=== PATIENT | male | born 1950 | race Caucasian/White ===

== ENCOUNTER 2020-12-29 19:44 | Emergency (ER) | payer MEDICARE, BC ==
[~2020-12-29] VITALS: Ht 188 cm; Wt 96.4 kg
[2020-12-29 21:00] LABS: BASOPHILS % (AUTO) 0.7 % (0-1); EOSINOPHILS # (AUTO) 0.2 X10'3 (0-0.9); HEMATOCRIT 36.4 % (42.0-52.0); HEMOGLOBIN 12.6 g/dl (14.0-17.9); LYMPHOCYTES # (AUTO) 0.8 X10'3 (1.1-4.8); LYMPHOCYTES % (AUTO) 14.3 % (21-51); MEAN CORPUSCULAR HEMOGLOBIN 33.8 PG (27.0-31.0); MEAN CORPUSCULAR HGB CONC 34.7 g/dL (33.0-36.5); MEAN CORPUSCULAR VOLUME 97.4 FL (78-98); MEAN PLATELET VOLUME 7.5 FL (7.4-10.4); MONOCYTES # (AUTO) 0.7 X10'3 (0-0.9); MONOCYTES % (AUTO) 11.2 % (2-12); NEUTROPHILS # (AUTO) 4.1 X10'3 (1.8-7.7); NEUTROPHILS % (AUTO) 69.8 % (42-75); PLATELET COUNT 140 X10'3 (140-440); RED BLOOD COUNT 3.74 X10'6 (4.70-6.10); RED CELL DISTRIBUTION WIDTH 13.3 % (11.5-14.5); WHITE BLOOD COUNT 5.9 X10'3 (4.5-11.0)
[2020-12-29] MEDS ORDERED: CARV-50 PO (21:03)
[2020-12-29] MEDS ORDERED: LISI20TA28 PO (21:04)
[2020-12-29] MEDS ORDERED: LOVA20TA2 PO (21:05)
[2020-12-29] MEDS ORDERED: APIX5TAB3 PO (21:06)
[2020-12-29] MEDS ORDERED: AMIO200T67 (21:06)
[2020-12-29] MEDS ORDERED: SYN0.088T PO (21:07)
[2020-12-29] MEDS ORDERED: OMEP40CA13 PO (21:08)
[2020-12-29] MEDS ORDERED: ASPI-1265 PO (21:08)
[2020-12-29] MEDS ORDERED: MAGN400C PO (21:08)
[2020-12-29] MEDS ORDERED: ASCO500C17 PO (21:09)
[2020-12-29] MEDS ORDERED: MULT-1085 PO (21:10)
[2020-12-29] MEDS ORDERED: OMEG-133 PO (21:10)
[2020-12-29] MEDS ORDERED: CHOL50004 PO (21:11)
--- NOTE | 2020-12-29 21:11 | NUR ---
Reviewed patient medication list with patient. Sidenafil 50 mg is on his medication list however patient startes he has not taken this medication for over a month and only takes it occassionally. Patient also reports using a home CPAP since he had a bout of a fib.
[2020-12-29 21:15] LABS: ALANINE AMINOTRANSFERASE 65 U/L (12-78); ALBUMIN 3.8 G/DL (3.4-5.0); ALBUMIN/GLOBULIN RATIO 0.9 (1.1-1.5); ALKALINE PHOSPHATASE 147 IU/L (46-116); ANION GAP 8 (8-16); ASPARTATE AMINO TRANSFERASE 41 U/L (10-37); BILIRUBIN,TOTAL 0.7 MG/DL (0.1-1.0); BLOOD UREA NITROGEN 23 MG/DL (7-18); BUN/CREATININE RATIO 12.2 (5.4-32.0); CALCIUM 8.9 MG/DL (8.5-10.1); CHLORIDE 102 MMOL/L (99-107); CREATININE 1.89 MG/DL (0.60-1.10); GLUCOSE 116 MG/DL (70-104); POTASSIUM 4.7 MMOL/L (3.5-5.1); SODIUM 137 MMOL/L (135-145); TOTAL CARBON DIOXIDE 26.7 MMOL/L (24-32); eGFR 35 ML/MIN
[2020-12-29] MEDS ORDERED: lisinopril 10 MG tablet PO ONE (21:25)
[2020-12-29] MEDS ORDERED: normal saline 1000ML IV soln IVB ONE (21:25)
[2020-12-29 22:32] LABS: MAGNESIUM 2.1 MG/DL (1.5-2.4)
[2020-12-29 22:33] VITALS: BP 130/78
== END 2020-12-29 23:16 | disposition home or self-care (01) ==
LOC: ER 19:44
DX: N28.9 Disorder of kidney and ureter, unspecified (principal); R42 Dizziness and giddiness; R00.2 Palpitations; I10 Essential (primary) hypertension; I48.91 Unspecified atrial fibrillation; E78.00 Pure hypercholesterolemia, unspecified; G47.30 Sleep apnea, unspecified; K21.9 Gastro-esophageal reflux disease without esophagitis; E03.9 Hypothyroidism, unspecified; Z79.899 Other long term (current) drug therapy; Z88.8 Allergy status to other drugs, medicaments and biological substances
CPT/HCPCS: 36415; 71045; 80053; 83735; 83880; 84484; 85025; 93005; 99285; J7030

== ENCOUNTER 2021-04-07 07:33 | Day surgery (SDC) | payer MEDICARE, BC ==
[~2021-04-07] VITALS: Ht 188 cm; Wt 94.8 kg
[2021-04-07] VITALS (10 sets, daily range): BP systolic 111–155; BP diastolic 63–84
[~2021-04-07 07:33] MED LIST: AMIO200T67; APIX5TAB3 PO; ASCO500C17 PO; ASPI-1265 PO; CARV-50 PO; CHOL50004 PO; LISI20TA28 PO; LOVA20TA2 PO; MAGN400C PO; MULT-1085 PO; OMEG-133 PO; OMEP40CA21 PO; SYN0.088T PO
[2021-04-07] MEDS ORDERED: normal saline 1000ml 1,000 ML IV PRN (08:15)
[2021-04-07] MEDS ORDERED: ceFAZolin 2gm in dextrose, iso 50 ML IV ONE (08:20)
[2021-04-07 08:44] LABS: EOSINOPHILS # (AUTO) 0.3 X10'3 (0-0.9); HEMATOCRIT 30.3 % (42.0-52.0); HEMOGLOBIN 10.5 g/dl (14.0-17.9); LYMPHOCYTES % (AUTO) 20.4 % (21-51); MEAN CORPUSCULAR HEMOGLOBIN 32.8 PG (27.0-31.0); MEAN CORPUSCULAR HGB CONC 34.5 g/dL (33.0-36.5); MEAN CORPUSCULAR VOLUME 95.1 FL (78-98); MEAN PLATELET VOLUME 7.9 FL (7.4-10.4); MONOCYTES # (AUTO) 0.6 X10'3 (0-0.9); MONOCYTES % (AUTO) 13.1 % (2-12); NEUTROPHILS # (AUTO) 2.8 X10'3 (1.8-7.7); NEUTROPHILS % (AUTO) 58.5 % (42-75); PLATELET COUNT 137 X10'3 (140-440); RED BLOOD COUNT 3.19 X10'6 (4.70-6.10); WHITE BLOOD COUNT 4.8 X10'3 (4.5-11.0)
[2021-04-07] MEDS ORDERED: CARV-49 PO (08:47)
[2021-04-07] MEDS ORDERED: LEVO50TA PO (08:48)
[2021-04-07] MEDS ORDERED: SILD50TA PO (08:49)
[2021-04-07] MEDS ORDERED: OMEP20TA23 PO (08:49)
[2021-04-07 08:54] LABS: ALBUMIN 3.7 G/DL (3.4-5.0); ANION GAP 10 (8-16); BLOOD UREA NITROGEN 32 MG/DL (7-18); BUN/CREATININE RATIO 10.6 (5.4-32.0); CALCIUM 10.4 MG/DL (8.5-10.1); CHLORIDE 107 MMOL/L (99-107); CREATININE 3.02 MG/DL (0.60-1.10); GLUCOSE 112 MG/DL (70-104); POTASSIUM 4.2 MMOL/L (3.5-5.1); SODIUM 143 MMOL/L (135-145); TOTAL CARBON DIOXIDE 26.1 MMOL/L (24-32); eGFR 21 ML/MIN
[2021-04-07] MEDS ORDERED: LIDOcaine 1% W/epiNEPHrine 1:100,000 20ml vial ONE ×2 (09:10→10:13)
[2021-04-07] MEDS ORDERED: ceFAZolin 1000mg inj ONE (09:10)
[2021-04-07] MEDS ORDERED: midazolam 1 mg/ML 2ml injection ONE ×2 (09:10→10:39)
[2021-04-07] MEDS ORDERED: fentaNYL/PF 50MCG/1 ML 2ML syringe ONE (09:10)
--- NOTE | 2021-04-07 10:14 | NUR ---
Reported creatinine level to Rachid ALANIS in cardiac cath lab technologist, stated MD is aware.
[2021-04-07] MEDS ORDERED: HYDROcodone/acetaminophen 10/325mg tab PO PRN (11:55)
[2021-04-07] MEDS ORDERED: HYDROcodone/acetaminophen 5mg/325mg tablet PO PRN (11:55)
[2021-04-07] MEDS ORDERED: vancomycin/NS 1 GM ADD-VANTAGE 250 ML IV ONE (12:30)
== END 2021-04-07 17:00 | disposition home or self-care (01) ==
LOC: SSTAY O 07:33
PROVIDERS: ATTEND Internal Medicine Cardiovascular Disease
DX: I49.5 Sick sinus syndrome (principal); I10 Essential (primary) hypertension; E78.5 Hyperlipidemia, unspecified; I25.10 Atherosclerotic heart disease of native coronary artery without angina pectoris; I48.91 Unspecified atrial fibrillation; I47.2 Ventricular tachycardia; G47.33 Obstructive sleep apnea (adult) (pediatric); I34.0 Nonrheumatic mitral (valve) insufficiency; I45.10 Unspecified right bundle-branch block; Z79.82 Long term (current) use of aspirin; Z79.899 Other long term (current) drug therapy; Z98.890 Other specified postprocedural states; Z87.891 Personal history of nicotine dependence; Z82.49 Family history of ischemic heart disease and other diseases of the circulatory system
CPT/HCPCS: 33208; 36415; 71046; 80048; 85025; 85610; 93005; 99152; 99153; C1785; C1894; C1898; J0690; J2250; J3010; J3370; J7030; 33217; A4565; A4620; A6449

== ENCOUNTER 2022-09-28 10:26 | Day surgery (SDC) | payer MEDICARE, BC ==
[2022-09-25 12:32] LABS: BASOPHILS % (AUTO) 0.7 % (0-1); EOSINOPHILS # (AUTO) 0.3 X10'3 (0-0.9); EOSINOPHILS % (AUTO) 6.3 % (0-6); HEMATOCRIT 42.5 % (42.0-52.0); HEMOGLOBIN 14.5 g/dl (14.0-17.9); LYMPHOCYTES % (AUTO) 20.8 % (21-51); MEAN CORPUSCULAR HEMOGLOBIN 33.3 PG (27.0-31.0); MEAN CORPUSCULAR VOLUME 98.1 FL (78-98); MEAN PLATELET VOLUME 7.7 FL (7.4-10.4); MONOCYTES # (AUTO) 0.6 X10'3 (0-0.9); MONOCYTES % (AUTO) 11.7 % (2-12); NEUTROPHILS # (AUTO) 2.9 X10'3 (1.8-7.7); NEUTROPHILS % (AUTO) 60.5 % (42-75); PLATELET COUNT 86 X10'3 (140-440); RED BLOOD COUNT 4.34 X10'6 (4.70-6.10); RED CELL DISTRIBUTION WIDTH 13.2 % (11.5-14.5); WHITE BLOOD COUNT 4.8 X10'3 (4.5-11.0)
[2022-09-25 12:48] LABS: APTT 32 SECONDS (22-32)
[2022-09-25 13:10] LABS: ALBUMIN 4.2 G/DL (3.4-5.0); ANION GAP 9 (8-16); BLOOD UREA NITROGEN 23 MG/DL (7-18); BUN/CREATININE RATIO 14.3 (5.4-32.0); CALCIUM 9.1 MG/DL (8.5-10.1); CHLORIDE 102 MMOL/L (99-107); CREATININE 1.61 MG/DL (0.60-1.10); GLUCOSE 109 MG/DL (70-104); POTASSIUM 4.3 MMOL/L (3.5-5.1); SODIUM 134 MMOL/L (135-145); TOTAL CARBON DIOXIDE 23.2 MMOL/L (24-32); eGFR 42 ML/MIN
[~2022-09-28] VITALS: Ht 182.9 cm; Wt 100.2 kg
[2022-09-28] VITALS (9 sets, daily range): BP systolic 100–149; BP diastolic 50–95
[~2022-09-28 10:26] MED LIST changes: -AMIO200T67; +AMIO200T67 PO; +CARV-49 PO; -CARV-50 PO; -CHOL50004 PO; +LEVO50TA PO; +OMEP20TA23 PO; -OMEP40CA21 PO; +SILD50TA PO; -SYN0.088T PO
[2022-09-28] MEDS ORDERED: diphenhydrAMINE 25mg capsule PO PRN (11:10)
[2022-09-28] MEDS ORDERED: LORazepam 0.5 MG tablet PO PRN (11:10)
[2022-09-28] MEDS ORDERED: normal saline 1,000 ML IV SCH (11:15)
[2022-09-28] MEDS ORDERED: sodium bicarbonate 1meq/ml syr 150 ML in dextrose 5%-water 850 ML IV ONE (11:15)
[2022-09-28] MEDS: acetylcysteine 200 MG/ml 4ml vial PO PRN ×2 (11:47→17:12)
[2022-09-28] MEDS ORDERED: CARV25TA PO (12:14)
[2022-09-28] MEDS ORDERED: UBID300C3 PO (12:14)
[2022-09-28] MEDS ORDERED: SYN0.088T PO (12:14)
[2022-09-28] MEDS ORDERED: CYAN250014 PO (12:14)
[2022-09-28] MEDS ORDERED: MELA10TA PO (12:14)
[2022-09-28] MEDS ORDERED: verapamil 2.5 mg/ml inj IV ONE (14:16)
[2022-09-28] MEDS ORDERED: nitroGLYCERIN-Tridil 50MG/D5W 250 ML IV ONE (14:16)
[2022-09-28] MEDS ORDERED: midazolam 1 mg/ML 2ml injection ONE (14:17)
[2022-09-28] MEDS ORDERED: LIDOcaine 1% (10mg/ml) 2ml vial ONE (14:17)
[2022-09-28] MEDS ORDERED: heparin 1,000unit/ml 10ml vial 10 ML ONE (14:17)
[2022-09-28] MEDS ORDERED: iohexol 350 MG/ML 50ML vial IV ONE (14:17)
[2022-09-28] MEDS ORDERED: iohexol 350MG/ML 100ml bottle IV ONE ×2 (14:17→15:14)
[2022-09-28] MEDS ORDERED: fentaNYL/PF 50MCG/1 ML 2ML syringe ONE (14:17)
[2022-09-28] MEDS ORDERED: HEPARIN SOD,PORK IN 0.45% NACL 250 ML IV ONE (15:20)
[2022-09-28] MEDS ORDERED: clopidogrel 300mg tablet ONE (16:15)
[2022-09-28] MEDS ORDERED: ACETYLCYSTEINE 200 MG/1 ML 4 ML ORAL SOLUTION PO SCH (16:58)
[2022-09-28] MEDS ORDERED: SODIUM BICARBONATE 150MEQ IN D5W 1,000 ML IV ONE (17:00)
[2022-09-28] MEDS ORDERED: HYDROcodone/acetaminophen 10/325mg tab PO PRN (17:00)
[2022-09-28] MEDS ORDERED: HYDROcodone/acetaminophen 5mg/325mg tablet PO PRN (17:00)
[2022-09-29] MEDS ORDERED: clopidogrel 75mg tablet PO SCH (08:00)
== END 2022-09-28 20:37 | disposition home or self-care (01) ==
LOC: SSTAY O 10:26
PROVIDERS: ATTEND Internal Medicine Cardiovascular Disease
DX: I25.10 Atherosclerotic heart disease of native coronary artery without angina pectoris (principal); I48.0 Paroxysmal atrial fibrillation; I49.5 Sick sinus syndrome; Z95.0 Presence of cardiac pacemaker; E78.5 Hyperlipidemia, unspecified; G47.33 Obstructive sleep apnea (adult) (pediatric); I47.29 Other ventricular tachycardia; I34.0 Nonrheumatic mitral (valve) insufficiency; I12.9 Hypertensive chronic kidney disease with stage 1 through stage 4 chronic kidney disease, or unspecified chronic kidney disease; N18.9 Chronic kidney disease, unspecified; Z98.890 Other specified postprocedural states; Z87.891 Personal history of nicotine dependence; Z82.49 Family history of ischemic heart disease and other diseases of the circulatory system
CPT/HCPCS: 36415; 76937; 80048; 85025; 85347; 85610; 85730; 93005; 93458; 99152; 99153; A6258; C1725; C1751; C1769; C1874; C1892; C1894; C9600; J1644; J2250; J3010; J3490; J7030; J7070; Q0163; Q9967; A6402

== ENCOUNTER 2023-03-17 08:46 | Outpatient (CLI) | payer MEDICARE, BC ==
[~2023-03-17 08:46] MED LIST changes: -ASCO500C17 PO; -CARV-49 PO; +CARV25TA PO; +CYAN250014 PO; -LEVO50TA PO; -LISI20TA28 PO; +MELATONIN10 MG PO; -MULT-1085 PO; -SILD50TA PO; +SYN0.088T PO; +UBID300C3 PO
[2023-03-17 09:19] LABS: TOTAL HEMOGLOBIN 13.6 G/dl (14.0-17.9)
== END 2023-03-17 23:59 | disposition home or self-care (01) ==
LOC: RT 08:46
PROVIDERS: ATTEND Internal Medicine Cardiovascular Disease
DX: J98.8 Other specified respiratory disorders (principal); Z79.899 Other long term (current) drug therapy
CPT/HCPCS: 85018; 94010; 94727; 94729

== ENCOUNTER 2023-04-24 10:29 | Emergency (ER) | payer MEDICARE, BC ==
[~2023-04-24] VITALS: Ht 182.9 cm; Wt 100.6 kg
[2023-04-24 11:13] LABS: BASOPHILS % (AUTO) 0.7 % (0-1); EOSINOPHILS # (AUTO) 0.1 X10'3 (0-0.9); EOSINOPHILS % (AUTO) 3.7 % (0-6); HEMATOCRIT 36.4 % (42.0-52.0); HEMOGLOBIN 12.5 g/dl (14.0-17.9); LYMPHOCYTES # (AUTO) 0.5 X10'3 (1.1-4.8); LYMPHOCYTES % (AUTO) 15.4 % (21-51); MEAN CORPUSCULAR HEMOGLOBIN 33.6 PG (27.0-31.0); MEAN CORPUSCULAR HGB CONC 34.5 g/dL (33.0-36.5); MEAN CORPUSCULAR VOLUME 97.3 FL (78-98); MEAN PLATELET VOLUME 8.1 FL (7.4-10.4); MONOCYTES # (AUTO) 0.4 X10'3 (0-0.9); MONOCYTES % (AUTO) 13.1 % (2-12); NEUTROPHILS # (AUTO) 2.3 X10'3 (1.8-7.7); NEUTROPHILS % (AUTO) 67.1 % (42-75); PLATELET COUNT 69 X10'3 (140-440); RED BLOOD COUNT 3.74 X10'6 (4.70-6.10); RED CELL DISTRIBUTION WIDTH 13.6 % (11.5-14.5); WHITE BLOOD COUNT 3.4 X10'3 (4.5-11.0)
[2023-04-24 11:21] LABS: ALANINE AMINOTRANSFERASE 28 U/L (12-78); ALBUMIN 3.8 G/DL (3.4-5.0); ALBUMIN/GLOBULIN RATIO 1.1 (1.1-1.5); ALKALINE PHOSPHATASE 63 IU/L (46-116); ANION GAP 8 (8-16); ASPARTATE AMINO TRANSFERASE 22 U/L (10-37); BILIRUBIN,TOTAL 0.9 MG/DL (0.1-1.0); BLOOD UREA NITROGEN 22 MG/DL (7-18); BUN/CREATININE RATIO 13.8 (10.0-20.0); CALCIUM 8.7 MG/DL (8.5-10.1); CHLORIDE 105 MMOL/L (99-107); CREATININE 1.59 MG/DL (0.60-1.10); GLUCOSE 122 MG/DL (70-104); POTASSIUM 4.4 MMOL/L (3.5-5.1); SODIUM 139 MMOL/L (135-145); TOTAL CARBON DIOXIDE 25.9 MMOL/L (24-32); TOTAL PROTEIN 7.3 G/DL (6.4-8.2); eGFR 43 ML/MIN
[2023-04-24 11:23] VITALS: TEMP 97.5
[2023-04-24 11:28] LABS: PRO BRAIN NATRIURETIC PEPTIDE 699 PG/ML (0-125)
--- NOTE | 2023-04-24 14:06 | NUR ---
INTERROGATED THE PACEMAKER
[2023-04-24] MEDS ORDERED: normal saline 1000ML IV soln IVB ONE (16:05)
[2023-04-24 17:25] LABS: BILIRUBIN,URINE NEGATIVE (Neg); CLARITY,URINE CLEAR (Clear); COLOR,URINE YELLOW (Yellow); GLUCOSE, URINE NEGATIVE (Neg); KETONES,URINE NEGATIVE (Neg); LEUKOCYTE ESTERASE ,URINE NEGATIVE (Neg); NITRITES, URINE NEGATIVE (Neg); OCCULT BLOOD,URINE NEGATIVE (Neg); PROTEIN,URINE NEGATIVE (Neg)
--- NOTE | 2023-04-24 17:25 | NUR ---
SPOKE WITH THE REP FROM [facility], SHE REPORTS THAT THERE WERE NO EVENTS RECORDED ON PT'S PACEMAKER HISTORY.
[2023-04-24 17:28] LABS: UA COLLECTION TYPE CLN CATCH MIDSTREAM
[2023-04-24 18:04] VITALS: BP 152/94; PULSE 62; RESP 16; O2SAT 99
== END 2023-04-24 18:05 | disposition home or self-care (01) ==
LOC: ER 10:29
DX: R42 Dizziness and giddiness (principal); E78.00 Pure hypercholesterolemia, unspecified; I10 Essential (primary) hypertension; K21.9 Gastro-esophageal reflux disease without esophagitis; E03.9 Hypothyroidism, unspecified; Z88.6 Allergy status to analgesic agent; Z79.899 Other long term (current) drug therapy; Z79.82 Long term (current) use of aspirin
CPT/HCPCS: 36415; 71045; 80053; 81003; 83880; 84484; 85025; 93005; 99285; J7030

== ENCOUNTER 2023-06-21 11:19 | Emergency (ER) | payer MEDICARE, BC ==
[~2023-06-21] VITALS: Ht 182.9 cm; Wt 100.0 kg
[2023-06-21 11:48] LABS: BASOPHILS % (AUTO) 0.6 % (0-1); EOSINOPHILS # (AUTO) 0.2 X10'3 (0-0.9); EOSINOPHILS % (AUTO) 3.3 % (0-6); HEMATOCRIT 38.3 % (42.0-52.0); HEMOGLOBIN 13.1 g/dl (14.0-17.9); LYMPHOCYTES # (AUTO) 0.6 X10'3 (1.1-4.8); LYMPHOCYTES % (AUTO) 11.1 % (21-51); MEAN CORPUSCULAR HEMOGLOBIN 32.4 PG (27.0-31.0); MEAN CORPUSCULAR HGB CONC 34.3 g/dL (33.0-36.5); MEAN CORPUSCULAR VOLUME 94.6 FL (78-98); MEAN PLATELET VOLUME 7.2 FL (7.4-10.4); MONOCYTES # (AUTO) 0.7 X10'3 (0-0.9); MONOCYTES % (AUTO) 12.2 % (2-12); NEUTROPHILS # (AUTO) 4.1 X10'3 (1.8-7.7); NEUTROPHILS % (AUTO) 72.8 % (42-75); PLATELET COUNT 137 X10'3 (140-440); RED BLOOD COUNT 4.04 X10'6 (4.70-6.10); WHITE BLOOD COUNT 5.7 X10'3 (4.5-11.0)
[2023-06-21 12:05] LABS: ALANINE AMINOTRANSFERASE 21 U/L (12-78); ALBUMIN 3.4 G/DL (3.4-5.0); ALBUMIN/GLOBULIN RATIO 0.7 (1.1-1.5); ALKALINE PHOSPHATASE 92 IU/L (46-116); ANION GAP 10 (8-16); ASPARTATE AMINO TRANSFERASE 19 U/L (10-37); BILIRUBIN,TOTAL 1.1 MG/DL (0.1-1.0); BLOOD UREA NITROGEN 22 MG/DL (7-18); CALCIUM 8.8 MG/DL (8.5-10.1); CHLORIDE 100 MMOL/L (99-107); CREATININE 1.47 MG/DL (0.60-1.10); GLUCOSE 120 MG/DL (70-104); POTASSIUM 4.4 MMOL/L (3.5-5.1); SODIUM 132 MMOL/L (135-145); TOTAL CARBON DIOXIDE 21.9 MMOL/L (24-32); eCRCL 48 ML/MIN; eGFR 47 ML/MIN
[2023-06-21 12:11] LABS: PRO BRAIN NATRIURETIC PEPTIDE 2602 PG/ML (0-125)
[2023-06-21 15:29] VITALS: BP 116/79; PULSE 60; RESP 14; TEMP 97.9; O2SAT 96
== END 2023-06-21 15:32 | disposition home or self-care (01) ==
LOC: ER 11:20
DX: I48.20 Chronic atrial fibrillation, unspecified (principal); E78.00 Pure hypercholesterolemia, unspecified; K21.9 Gastro-esophageal reflux disease without esophagitis; E03.9 Hypothyroidism, unspecified; Z88.6 Allergy status to analgesic agent; Z79.899 Other long term (current) drug therapy
CPT/HCPCS: 36415; 71045; 80053; 83880; 84484; 85025; 93005; 99285

== ENCOUNTER 2023-08-13 09:28 | Observation (INO) | payer MEDICARE, BC ==
[~2023-08-13] VITALS: Ht 188 cm; Wt 97.7 kg
[2023-08-13 10:03] LABS: LYMPHOCYTES # (AUTO) 0.3 X10'3 (1.1-4.8); MONOCYTES # (AUTO) 0.3 X10'3 (0-0.9); WHITE BLOOD COUNT 2.7 X10'3 (4.5-11.0)
[2023-08-13 10:05] LABS: BASOPHILS % (AUTO) 0.4 % (0-1); EOSINOPHILS % (AUTO) 1.9 % (0-6); HEMATOCRIT 33.5 % (42.0-52.0); HEMOGLOBIN 10.9 g/dl (14.0-17.9); LYMPHOCYTES % (AUTO) 11.2 % (21-51); MEAN CORPUSCULAR HEMOGLOBIN 30.7 PG (27.0-31.0); MEAN CORPUSCULAR HGB CONC 32.7 g/dL (33.0-36.5); MEAN CORPUSCULAR VOLUME 93.9 FL (78-98); MEAN PLATELET VOLUME 9.1 FL (7.4-10.4); MONOCYTES % (AUTO) 10.5 % (2-12); PLATELET COUNT 78 X10'3 (140-440); RED BLOOD COUNT 3.57 X10'6 (4.70-6.10); RED CELL DISTRIBUTION WIDTH 15.4 % (11.5-14.5)
[2023-08-13 10:24] LABS: ALANINE AMINOTRANSFERASE 34 U/L (12-78); ALBUMIN 3.5 G/DL (3.4-5.0); ALBUMIN/GLOBULIN RATIO 0.9 (1.1-1.5); ALKALINE PHOSPHATASE 142 IU/L (46-116); ANION GAP 8 (8-16); ASPARTATE AMINO TRANSFERASE 29 U/L (10-37); BILIRUBIN,TOTAL 1.2 MG/DL (0.1-1.0); BLOOD UREA NITROGEN 15 MG/DL (7-18); BUN/CREATININE RATIO 8.3 (10.0-20.0); CALCIUM 8.5 MG/DL (8.5-10.1); CHLORIDE 101 MMOL/L (99-107); CREATININE 1.81 MG/DL (0.60-1.10); GLUCOSE 115 MG/DL (70-104); POTASSIUM 4.3 MMOL/L (3.5-5.1); SODIUM 134 MMOL/L (135-145); TOTAL CARBON DIOXIDE 24.6 MMOL/L (24-32); TOTAL PROTEIN 7.3 G/DL (6.4-8.2); eCRCL 39 ML/MIN; eGFR 37 ML/MIN
[2023-08-13 10:25] LABS: ANISOCYTOSIS FEW; PLATELET ESTIMATE DECREASED; POLYCHROMASIA FEW; TOTAL CELLS COUNTED 100
[2023-08-13 10:26] LABS: TEAR DROP CELLS FEW
[2023-08-13 10:27] LABS: ACANTHOCYTES FEW; ELLIPTOCYTES FEW; HYPOCHROMASIA 1+
[2023-08-13 10:33] LABS: PRO BRAIN NATRIURETIC PEPTIDE 2112 PG/ML (0-125)
[2023-08-13] MEDS ORDERED: magnesium 2GM in 50ml NS 50 ML IV PRN (13:00)
[2023-08-13] MEDS ORDERED: HYDROcodone/acetaminophen 5mg/325mg tablet PO PRN (13:00)
[2023-08-13] MEDS ORDERED: morphine 2 MG/ML inj. syringe IV PRN ×2 (13:00)
[2023-08-13] MEDS ORDERED: potassium Cl 40MEQ/1/2NS 520ml 520 ML IV PRN (13:00)
[2023-08-13] MEDS ORDERED: magnesium 4gm in 100ml NS 100 ML IV PRN (13:00)
[2023-08-13] MEDS ORDERED: magnesium Cl slow-release 64mg tablet PO PRN (13:00)
[2023-08-13] MEDS ORDERED: potassium Cl 20 mEq SR tablet PO PRN ×2 (13:00)
[2023-08-13] MEDS ORDERED: acetaminophen 325mg tablet PO PRN ×2 (13:00)
[2023-08-13] MEDS ORDERED: HYDROcodone/acetaminophen 10/325mg tab PO PRN (13:00)
[2023-08-13] MEDS ORDERED: ondansetron/PF 4mg/2ml inj IV PRN (13:00)
[2023-08-13] MEDS: normal saline 1000ml 1,000 ML IV SCH (13:59)
[2023-08-13] MEDS ORDERED: UBID100T7 PO (19:06)
[2023-08-13] MEDS ORDERED: CLOP-32 PO (19:06)
[2023-08-13] MEDS ORDERED: ROSU20TA2 PO (19:06)
[2023-08-13] MEDS: enoxaparin 40mg/0.4ml syringe SQ SCH (20:00)
[2023-08-13 22:00] VITALS: BP 109/77; PULSE 60; RESP 19; TEMP 97.7; O2SAT 60; O2SAT 98
[2023-08-14 02:00] VITALS: BP 106/71; PULSE 60; RESP 16; TEMP 97.7; O2SAT 95
[2023-08-14 06:00] VITALS: BP 121/80; PULSE 61; RESP 14; TEMP 98.3; O2SAT 98
[2023-08-14 07:05] LABS: BASOPHILS % (AUTO) 0.6 % (0-1); EOSINOPHILS # (AUTO) 0.1 X10'3 (0-0.9); EOSINOPHILS % (AUTO) 3.2 % (0-6); HEMATOCRIT 30.2 % (42.0-52.0); HEMOGLOBIN 10.2 g/dl (14.0-17.9); LYMPHOCYTES # (AUTO) 0.4 X10'3 (1.1-4.8); LYMPHOCYTES % (AUTO) 18.2 % (21-51); MEAN CORPUSCULAR HEMOGLOBIN 31.2 PG (27.0-31.0); MEAN CORPUSCULAR HGB CONC 33.7 g/dL (33.0-36.5); MEAN CORPUSCULAR VOLUME 92.6 FL (78-98); MEAN PLATELET VOLUME 9.2 FL (7.4-10.4); MONOCYTES # (AUTO) 0.2 X10'3 (0-0.9); MONOCYTES % (AUTO) 11.5 % (2-12); NEUTROPHILS # (AUTO) 1.4 X10'3 (1.8-7.7); NEUTROPHILS % (AUTO) 66.5 % (42-75); PLATELET COUNT 64 X10'3 (140-440); RED BLOOD COUNT 3.26 X10'6 (4.70-6.10); RED CELL DISTRIBUTION WIDTH 15.5 % (11.5-14.5); WHITE BLOOD COUNT 2.1 X10'3 (4.5-11.0)
[2023-08-14 07:31] LABS: ALANINE AMINOTRANSFERASE 29 U/L (12-78); ALBUMIN 3.1 G/DL (3.4-5.0); ALBUMIN/GLOBULIN RATIO 0.8 (1.1-1.5); ALKALINE PHOSPHATASE 136 IU/L (46-116); ANION GAP 10 (8-16); ASPARTATE AMINO TRANSFERASE 27 U/L (10-37); BILIRUBIN,TOTAL 1.1 MG/DL (0.1-1.0); BLOOD UREA NITROGEN 17 MG/DL (7-18); BUN/CREATININE RATIO 10.2 (10.0-20.0); CALCIUM 8.5 MG/DL (8.5-10.1); CHLORIDE 104 MMOL/L (99-107); CREATININE 1.67 MG/DL (0.60-1.10); GLUCOSE 110 MG/DL (70-104); POTASSIUM 4.4 MMOL/L (3.5-5.1); SODIUM 138 MMOL/L (135-145); TOTAL CARBON DIOXIDE 24.2 MMOL/L (24-32); TOTAL PROTEIN 6.8 G/DL (6.4-8.2); eCRCL 45 ML/MIN; eGFR 40 ML/MIN
[2023-08-14 07:34] LABS: ANISOCYTOSIS 1+; PLATELET ESTIMATE DECREASED; TOTAL CELLS COUNTED 100
[2023-08-14 07:37] LABS: ELLIPTOCYTES FEW; TEAR DROP CELLS FEW
[2023-08-14 08:15] VITALS: RESP 14; O2SAT 98
[2023-08-14] MEDS: normal saline 1000ml 1,000 ML IV SCH (09:33)
[2023-08-14] MEDS ORDERED: FURO20TA4 PO (10:39)
[2023-08-14] MEDS ORDERED: furosemide 20 MG/2 ML vial IV ONE (10:40)
[2023-08-14 11:00] VITALS: BP 138/78; PULSE 73; RESP 17; TEMP 98.3; O2SAT 96
== END 2023-08-14 12:56 | disposition home or self-care (01) ==
LOC: ER 09:29 → ED HOLD 13:04 → EDBEDREQ 19:53 → PCU 3S 20:30
PROVIDERS: ADMIT Internal Medicine; ATTEND Internal Medicine
DX: T82.110A Breakdown (mechanical) of cardiac electrode, initial encounter (principal); I48.20 Chronic atrial fibrillation, unspecified; E78.00 Pure hypercholesterolemia, unspecified; I10 Essential (primary) hypertension; G47.30 Sleep apnea, unspecified; K21.9 Gastro-esophageal reflux disease without esophagitis; E03.9 Hypothyroidism, unspecified; I25.10 Atherosclerotic heart disease of native coronary artery without angina pectoris; I21.4 Non-ST elevation (NSTEMI) myocardial infarction; Z79.01 Long term (current) use of anticoagulants; Z79.899 Other long term (current) drug therapy; Z79.02 Long term (current) use of antithrombotics/antiplatelets; Z87.442 Personal history of urinary calculi; Y71.2 Prosthetic and other implants, materials and accessory cardiovascular devices associated with adverse incidents
CPT/HCPCS: 36415; 71045; 80053; 83880; 84484; 85007; 85025; 87081; 93005; 93308; 96361; 96372; 96374; 99291; G0378; J1650; J1940; J7030

== ENCOUNTER 2024-10-09 09:38 | Outpatient (CLI) | payer OTHER ==
[~2024-10-09 09:38] MED LIST changes: +CLOP-32 PO; +FURO20TA4 PO; -LOVA20TA2 PO; -MELATONIN10 MG PO; +ROSU20TA2 PO; +UBID100T7 PO; -UBID300C3 PO
[2024-10-09 10:20] LABS: BILIRUBIN,URINE NEGATIVE (Neg); CLARITY,URINE CLEAR (Clear); COLOR,URINE STRAW (Yellow); GLUCOSE, URINE >=1000 mg/dl (Neg); KETONES,URINE NEGATIVE (Neg); LEUKOCYTE ESTERASE ,URINE NEGATIVE (Neg); NITRITES, URINE NEGATIVE (Neg); OCCULT BLOOD,URINE TRACE-INTACT (Neg); PROTEIN,URINE NEGATIVE (Neg); UROBILINOGEN,URINE 0.2 E.U/dL (0.2-1.0)
[2024-10-09 10:22] LABS: UA COLLECTION TYPE CLN CATCH MIDSTREAM
[2024-10-09 10:32] LABS: BACTERIA,URINE NONE SEEN /HPF (Neg); MUCUS STRANDS NONE SEEN /LPF (Neg); RBC,URINE 0-2 /HPF (0-2); SQUAMOUS EPITHELIAL CELL,UR NONE SEEN /LPF (FEW); WBC,URINE 0-4 /HPF (0-4)
[2024-10-09 12:57] LABS: ALANINE AMINOTRANSFERASE 55 U/L (12-78); ALBUMIN 4.2 G/DL (3.4-5.0); ALKALINE PHOSPHATASE 80 IU/L (46-116); ANION GAP 7 (8-16); ASPARTATE AMINO TRANSFERASE 31 U/L (10-37); BILIRUBIN,TOTAL 1.7 MG/DL (0.1-1.0); BLOOD UREA NITROGEN 17 MG/DL (7-18); BUN/CREATININE RATIO 10.4 (10.0-20.0); CALCIUM 8.6 MG/DL (8.5-10.1); CHLORIDE 103 MMOL/L (99-107); CREATININE 1.64 MG/DL (0.60-1.10); FREE T4 (FREE THYROXINE) 1.51 NG/DL (0.73-1.40); GLUCOSE 104 MG/DL (70-104); POTASSIUM 5.1 MMOL/L (3.5-5.1); SODIUM 137 MMOL/L (135-145); THYROID STIMULATING HORMONE 4.71 ulU/ml (0.34-4.50); TOTAL CARBON DIOXIDE 26.7 MMOL/L (24-32); TOTAL PROTEIN 8.4 G/DL (6.4-8.2); eGFR 41 ML/MIN
== END 2024-10-09 23:59 | disposition home or self-care (01) ==
LOC: CARD DIAG 09:38
PROVIDERS: ATTEND Chiropractor
DX: I08.8 Other rheumatic multiple valve diseases (principal); I10 Essential (primary) hypertension; I25.10 Atherosclerotic heart disease of native coronary artery without angina pectoris; I25.89 Other forms of chronic ischemic heart disease; M06.9 Rheumatoid arthritis, unspecified; Z95.810 Presence of automatic (implantable) cardiac defibrillator
CPT/HCPCS: 36415; 80053; 81001; 84439; 84443; 84481; 93306